=== PATIENT | female | born 1955 | race African-American/Black ===

== ENCOUNTER 2021-02-13 16:46 | Emergency (ER) | payer MEDICARE, SELFPAY ==
--- NOTE | 2021-02-13 16:50 | ED.BACK ---
HPI - Back Pain/Injury General Chief Complaint: Back Pain/Injury Stated Complaint: Low back pain Time Seen by Provider: 02/13/21 17:20 Source: patient and RN notes reviewed Mode of arrival: ambulatory Limitations: no limitations History of Present Illness HPI Narrative: 65-year-old female presents concern for 2 to 3-day history of right low back pain. She denies injury or trauma. Reports history of arthritis in her back with back pain. Reports she is taken cyclobenzaprine in the past, however she does not like to take it because it makes her too tired. She denies hematuria, dysuria, frequency. Denies bowel or bladder dysfunction. Denies perianal anesthesia. Denies abdominal pain, nausea, vomiting, diarrhea. Denies fever, body aches, chills, sweats. Reports pain is positional, she can find positions of comfort, moving, bending, twisting in certain positions exacerbate the pain. Reports right lower tenderness. MD elicited complaint: back pain Related Data Home Medications Medication Instructions Recorded Confirmed amlodipine 10 mg PO DAILY 02/13/21 02/13/21 hydrochlorothiazide 25 mg PO DAILY 02/13/21 02/13/21 levetiracetam [Keppra] 250 mg PO BID 02/13/21 02/13/21 metformin 1,000 mg PO BID 02/13/21 02/13/21 Allergies Allergy/AdvReac Type Severity Reaction Status Date / Time ampicillin Allergy Unknown Rash Verified 02/13/21 17:17 Review of Systems Review of Systems: CONSTITUTIONAL: Denies malaise, chills, sweats, or fever. CARDIOVASCULAR: Denies chest pain, palpitations, or edema. RESPIRATORY: Denies cough or dyspnea. GASTROINTESTINAL: Denies abdominal pain, nausea, vomiting, diarrhea, bloody, or mucous stools. Denies loss of bowel function GENITOURINARY: Denies dysuria or hematuria. Denies loss of bladder function or perianal anesthesia SKIN: Denies bruising, redness, rash MUSCULOSKELETAL: Reports right lower back pain NEUROLOGIC: Denies numbness, weakness All systems reviewed & are unremarkable except as noted in HPI and below PMFSH Comments At time of signature, agree with nursing past medical, surgical, social and family history. There is no relevant family history pertinent to the presenting complaint Exam Narrative: GENERAL: Well-appearing, well-nourished, and in no acute distress. HEAD: Normocephalic, atraumatic. EYES: PERRLA and EOMI. NECK: Supple. No lymphadenopathy. CHEST: Clear to auscultation. No respiratory distress. HEART: Regular rate and rhythm. Distal pulses palpable and equal, cap refill <3 seconds ABDOMEN: Soft, nontender, nondistended, normal active bowel sounds, no palpable or pulsatile masses. No CVA tenderness MUSCULOSKELETAL: Normal range of motion and strength in all extremities; 5/5 strength with hip flexion and extension, dorsiflexion and extension, knee flexion and extension, plantar flexion and extension. Normal sensation in dermatomal distributions with sensitivity to light touch and pain. No midline back tenderness to palpation. Right lateral low back tenderness. Transfers from sitting to standing. SKIN: Warm, dry, no rash. No ecchymosis, erythema, open wounds to back. NEURO: No focal deficits. Alert and oriented x3. Reflexes intact. Normal gait. PSYCH: Normal mood and affect Course Course Emergency Course: Discussed work-up for rule out of nephrolithiasis, patient does not choose to pursue that avenue of treatment at this time, she feels her pain is related to her arthritis. Patient was given instructions of following up with primary care provider going the emergency room if the systems persist. Patient is aware of diagnosis, understands and agrees to treatment plan. Anticipatory guidance given. Patient agrees to follow-up as directed and is aware of reasons to seek care at the emergency department. Portions of this record may have been created with voice recognition software Vital Signs Vital signs: Reviewed. Patient has history of hypertension MDM - Back Pain/Injury MDM Narrative
[2021-02-13 17:04] VITALS: BP 135/89; PULSE 68; RESP 14; TEMP 36; O2SAT 100
[2021-02-13 17:18] VITALS: BP 135/89; PULSE 68; RESP 14; TEMP 36; O2SAT 100
== END 2021-02-13 17:35 | disposition home or self-care (01) ==
LOC: EXPBETH 16:53
PROVIDERS: Emergency Provider Nurse Practitioner; PCP Internal Medicine Infectious Disease
DX: M54.5 Low back pain (principal)
CPT/HCPCS: 99213; G0463